=== PATIENT | male | born 1960 | race Hispanic/Latino ===

== ENCOUNTER 2017-03-18 03:22 | Emergency (ER) | payer SELFPAY ==
[~2017-03-18] VITALS: Ht 165.1 cm; Wt 59.0 kg
[~2017-03-18 03:22] MED LIST: HYDR-3454 PO; PENI500T PO
[2017-03-18] MEDS: LACTATED RINGERS 1,000 ML IV ONE (03:49)
[2017-03-18] MEDS: PANTOPRAZOLE 40 MG/10 ML (PROTONIX) VIAL IV ONE (03:54)
--- NOTE | 2017-03-18 03:56 | ED General ---
General Stated Complaint: ILLNESS Source of Information: EMS Exam Limitations: Other (PT UNABLE TO GIVE ANY INFORMATION--IS CONFUSED) History of Present Illness Time Seen by Provider: 03:18 Initial Comments PT ARRIVES VIA EMS FROM HOME NO INFORMATION IS OBTAINABLE EMS DO NOT KNOW WHO CALLED AND NO ONE AT SCENE PT AGITATED, NOT ANSWERING QUESTIONS OR FOLLOWING COMMANDS PT WAS FOUND BY EMS WITH BRIGHT RED BLOOD ON TOILET AND ON SHORTS , WELL SOCKS. PT WAS FOUND TO HAVE EMPTY BOTTLES OF ALCOHOL NEAR HIM, ALSO SEVERAL BOTTLES OF BLEACH PT NOTED TO HAVE BRUISE TO LEFT FLANK AND ON FOREARMS BUT NO OPEN WOUNDS. ACCUCHECK 66 PER EMS Allergies and Home Medications Allergies Coded Allergies: No Known Drug Allergies (Unverified , 04/17/14) Home Medications Hydrocodone/Acetaminophen 1 Each Tablet, 2 EACH PO Q6H, #20 Prescribed by: JONES LOMBARDO MD on 11/22/15 1521 Penicillin V Potassium 500 Mg Tablet, 500 MG PO QID for 10 Days Prescribed by: JONES LOMBARDO MD on 11/22/15 1521 Constitutional: other (UNABLE TO OBTAIN) Past Jygygry-Wrrjdo-Edpsmw Hx Patient Social History Alcohol Use: Regular Use (HEAVY) Recreational Drug Use: No Smoking Status: Never a Smoker Recent Foreign Travel: No Contact w/Someone Who Travel: No Surgeries HX Surgeries: No Respiratory Hx Respiratory Disorders: No Cardiovascular Hx Cardiac Disorders: No Neurological Hx Neurological Disorders: No Reproductive System Hx Reproductive Disorders: No Sexually Transmitted Disease: No Genitourinary Hx Genitourinary Disorders: No Gastrointestinal Hx Gastrointestinal Disorders: No Musculoskeletal Hx Musculoskeletal Disorders: No (RIGHT ARM FX) Musculoskeletal Disorders: Fractures Endocrine Hx Endocrine Disorders: No HEENT HX ENT Disorders: No Cancer Hx Cancer: No Psychosocial Hx Psychiatric Problems: No Integumentary HX Skin/Integumentary Disorder: No Blood Transfusions Hx Blood Disorders: No Family Medical History Other UNABLE TO OBTAIN PMH FROM PT AT THIS TIME--ALL OF THE ABOVE IS FROM OLD RECORD Family Medial History: Cancer G8 BROTHER Chest pain 19 MOTHER Family history: Cardiovascular disease 19 MOTHER Family history: Diabetes mellitus 19 MOTHER Family history: Hypertension 19 MOTHER Headache 19 MOTHER Heart disease 19 MOTHER History of - respiratory disease 19 MOTHER Stroke 19 MOTHER Physical Exam Vital Signs Vital Sign - Last 12Hours 03/18/17 03/18/17 03:22 08:04 Temp 93.0 Pulse 103 Resp 24 B/P (MAP) 100/65 Pulse Ox 100 O2 Delivery Room Air FiO2 100 Capillary Refill : General Appearance: Anxious, Thin, Other (ANXIOUS, AGITATED, RESTLESS, PULLING AT IV'S, MONITOR LEADS, CATHETER. MOANING AND HYPERVENTILATING. PT REEKS OF ALCOHOL. BRIGHT RED BLOOD IN SHORTS ALONG WITH STOOL. ALSO BRIGHT RED BLOOD ON SOCKS. ) HEENT: PERRL/EOMI, Scleral Icterus (L), Other (PT WITH EXTREMELY DRY ORAL MUCOSA WITH FISSURED TONGUE. BRIGHT RED BLOOD IN MOUTH AND ON LIPS, BUT WITH NO EVIDENCE OF VOMIT. ) Neck: Full Range of Motion, Normal Inspection, Non Tender, Supple Respiratory: Normal Breath Sounds, No Accessory Muscle Use, No Respiratory Distress Cardiovascular: Regular Rate, Rhythm, No Edema, No JVD, No Murmur, Normal Peripheral Pulses Gastrointestinal: Normal Bowel Sounds, Non Tender, Soft Rectal: No Hemorrhoids, No Mass, Other (ACTIVE BLEEDING FROM RECTUM) Extremity: Normal Range of Motion, No Pedal Edema Neurologic/Psychiatric: Alert, Other (AGITATED, RESTLESS, DOES NOT ANSWER QUESTIONS OR FOLLOW COMMANDS, PULLING AT TUBES, IV, MONITOR LINES, ETC ) Skin: Ecchymosis (MUTLIPLE AREAS), Jaundice Progress/Results/Core Measures Results/Orders Lab Results Laboratory Tests Test 03/18/17 03:33 03/18/17 03:44 03/18/17 05:28 03/18/17 05:41 Range/Units White Blood Count 6.7 4.3-11.0 10^3/uL Red Blood Count 2.29 L 4.35-5.85 10^6/uL Hemoglobin 8.2 L 13.3-17.7 G/DL Hematocrit 26 L 40-54 % Mean Corpuscular Volume 115 H 80-99 FL Mean Corpuscular Hemoglobin 36 H 25-34 PG Mean Corpuscular Hemoglobin Concent 31 L 32-36 G/DL Red Cell Distribution Width 12.6 10.0-14.5 % Platelet Count 63 L 130-400 10^3/uL Mean Platelet Volume 12.7 H 7.4-10.4 FL Neutrophils (%) (Auto) 69 42-75 % Lymphocytes (%) (Auto) 11 L 12-44 % Monocytes (%) (Auto) 20 H 0-12 % Eosinophils (%) (Auto) 0 0-10 % Basophils (%) (Auto) 0 0-10 % Neutrophils # (Auto) 4.6 1.8-7.8 X 10^3 Lymphocytes # (Auto) 0.8 L 1.0-4.0 X 10^3 Monocytes # (Auto) 1.3 H 0.0-1.0 X 10^3 Eosinophils # (Auto) 0.0 0.0-0.3 10^3/uL Basophils # (Auto) 0.0 0.0-0.1 10^3/uL Prothrombin Time 24.9 H 12.2-14.7 SEC INR Comment 2.3 H 0.8-1.4 Activated Partial Thromboplast Time 49 H 24-35 SEC Sodium Level 136 135-145 MMOL/L Potassium Level 3.4 L 3.6-5.0 MMOL/L Chloride Level 89 L 98-107 MMOL/L Carbon Dioxide Level < 5 *L 21-32 MMOL/L Anion Gap 42 H 5-14 MMOL/L Blood Urea Nitrogen 47 H 7-18 MG/DL Creatinine 2.50 H 0.60-1.30 MG/DL Estimat Glomerular Filtration Rate 27 BUN/Creatinine Ratio 19 Glucose Level 54 *L 70-105 MG/DL Calcium Level 8.1 L 8.5-10.1 MG/DL Magnesium Level 2.0 1.8-2.4 MG/DL Total Bilirubin 10.0 H 0.1-1.0 MG/DL Aspartate Amino Transf (AST/SGOT) 324 H 5-34 U/L Alanine Aminotransferase (ALT/SGPT) 87 H 0-55 U/L Alkaline Phosphatase 147 H 40-136 U/L Ammonia 298 H 11-32 UMOL/L Troponin I < 0.30 <0.30 NG/ML Total Protein 6.5 6.4-8.2 G/DL Albumin 2.9 L 3.2-4.5 G/DL Amylase Level 999 H 25-125 U/L Lipase 4783 H 8-78 U/L TSH [place] Testing 0.67 0.35-4.94 UIU/ML Acetaminophen Level < 10 L 10-30 UG/ML Serum Alcohol 115 H <10 MG/DL Urine Color YELLOW Urine Clarity SLIGHTLY CLOUDY Urine pH 5 5-9 Urine Specific [place] 1.025 H 1.016-1.022 Urine Protein 3+ H NEGATIVE Urine Glucose (UA) NEGATIVE NEGATIVE Urine Ketones 1+ H NEGATIVE Urine Nitrite NEGATIVE NEGATIVE Urine Bilirubin 3+ H NEGATIVE Urine Urobilinogen 12 H NORMAL MG/DL Urine Leukocyte Esterase 1+ H NEGATIVE Urine RBC (Auto) 5+ H NEGATIVE Urine RBC NONE /HPF Urine WBC RARE /HPF Urine Squamous Epithelial Cells 2-5 /HPF Urine Crystals PRESENT H /LPF Urine Amorphous Sediment LARGE YESICA URATES H /LPF Urine Bacteria NEGATIVE /HPF Urine Casts NONE /LPF Urine Mucus NEGATIVE /LPF Urine Culture Indicated NO Urine Opiates Screen NEGATIVE NEGATIVE Urine Oxycodone Screen NEGATIVE NEGATIVE Urine Methadone Screen NEGATIVE NEGATIVE Urine Propoxyphene Screen NEGATIVE NEGATIVE Urine Barbiturates Screen NEGATIVE NEGATIVE Ur Tricyclic Antidepressants Screen NEGATIVE NEGATIVE Urine Phencyclidine Screen NEGATIVE NEGATIVE Urine Amphetamines Screen NEGATIVE NEGATIVE Urine Methamphetamines Screen NEGATIVE NEGATIVE Urine Benzodiazepines Screen NEGATIVE NEGATIVE Urine Cocaine Screen NEGATIVE NEGATIVE Urine Cannabinoids Screen POSITIVE H NEGATIVE Blood Gas Puncture Site LEFT BRACHIAL Blood Gas Patient Temperature 86.7 Arterial Blood pH 6.90 *L 7.37-7.43 Arterial Blood Partial Pressure CO2 10 *L 35-45 MMHG Arterial Blood Partial Pressure O2 114 H 79-93 MMHG Arterial Blood HCO3 2 *L 23-27 MMOL/L Arterial Blood Total CO2 2.5 L 21.0-31.0 MMOL/L Arterial Blood Oxygen Saturation 96 94-100 % Arterial Blood Base Excess -28.9 L -2.5-2.5 MMOL/L Kilo Test NA Blood Gas Ventilator Setting NO Blood Gas Inspired Oxygen ROOM AIR Glucometer 176 H 70-110 MG/DL Test 03/18/17 07:45 03/18/17 07:55 Range/Units Glucometer 93 70-110 MG/DL Blood Gas Puncture Site R BRACH Blood Gas Patient Temperature 84.8 Arterial Blood pH 6.71 *L 7.37-7.43 Arterial Blood Partial Pressure CO2 62 H 35-45 MMHG Arterial Blood Partial Pressure O2 110 H 79-93 MMHG Arterial Blood HCO3 7 *L 23-27 MMOL/L Arterial Blood Total CO2 9.0 L 21.0-31.0 MMOL/L Arterial Blood Oxygen Saturation 91 L 94-100 % Arterial Blood Base Excess -25.0 L -2.5-2.5 MMOL/L Kilo Test YES-POS Blood Gas Ventilator Setting YES Blood Gas Inspired Oxygen 100% My Orders Orders - JUMANA BILLY DO Saline Lock/Iv-Start (03/18/17 03:33) Ekg Tracing (03/18/17 03:33) Restraints: Medically Indicate Q2H (03/18/17 03:33) Monitor-Rhythm Ecg Trace Only (03/18/17 03:33) Ct Head Wo-R/O Stroke (03/18/17 03:33) Acetaminophen (03/18/17 03:33) Alcohol (03/18/17 03:33) Ammonia (03/18/17 03:33) Amylase (03/18/17 03:33) Cbc With Automated Diff (03/18/17 03:33) Comprehensive Metabolic Panel (03/18/17 03:33) Drug Screen Stat (Urine) (03/18/17 03:33) Hepatitis Panel Acute (03/18/17 03:33) Lipase (03/18/17 03:33) Magnesium (03/18/17 03:33) Protime With Inr (03/18/17 03:33) Partial Thromboplastin Time (03/18/17 03:33) Thyroid Analyzer (03/18/17 03:33) Troponin I (03/18/17 03:33) Ua Culture If Indicated (03/18/17 03:33) Chest 1 View, Ap/Pa Only (03/18/17 03:33) Saline Lock/Iv-Start (03/18/17 03:33) Lactated Ringers (Lr 1000 Ml Iv Solution (03/18/17 03:33) Ct Abdomen/Pelvis Wo (03/18/17 03:45) Ondansetron Injection (Zofran Injectio (03/18/17 04:00) Saline Lock/Iv-Start (03/18/17 03:46) Ns Iv 1000 Ml (Sodium Chloride 0.9%) (03/18/17 03:46) Pantoprazole Injection (Protonix Injecti (03/18/17 04:00) Fecal Occult Bedside (03/18/17 03:47) O2 (03/18/17 03:47) Pantoprazole Injection (Protonix Injecti (03/18/17 03:43) Red Cells Leukocytes Reduced (03/18/17 04:28) Type And Screen (03/18/17 04:28) D50w (Emergency) Syringe (Dextrose 50% 5 (03/18/17 04:45) D50w (Emergency) Syringe (Dextrose 50% 5 (03/18/17 04:35) Fresh Frozen Plasma (03/18/17 05:17) Arterial Blood Gas (03/18/17 05:18) Arterial Blood Gas (03/18/17 05:41) Accucheck Stat ONCE (03/18/17 05:41) Sodium Bicarbonate 8.4% Syr (Sodium Bica (03/18/17 05:42) Sodium Bicarbonate 8.4% Syr (Sodium Bica (03/18/17 06:00) Ns Iv 1000 Ml (Sodium Chloride 0.9%) (03/18/17 05:58) Saline Lock/Iv-Start (03/18/17 06:09) Ns Iv 1000 Ml (Sodium Chloride 0.9%) (03/18/17 06:09) Red Cells Leukocytes Reduced (03/18/17 05:26) Dopamine Drip (Dopamine Drip) (03/18/17 06:53) Chest 1 View, Ap/Pa Only (03/18/17 07:16) Ceftriaxone Injection (Rocephin Injectio (03/18/17 07:30) Arterial Blood Gas (03/18/17 07:22) Accucheck Stat ONCE (03/18/17 07:39) Dopamine Drip (Dopamine Drip) (03/18/17 08:00) Rocuronium Injection (Zemuron Injection) (03/18/17 08:10) Atropine Inj 10 Mg Syringe (Atropine In (03/18/17 08:17) Epinephrine Emergency Syringe (Epinephr (03/18/17 08:17) Sodium Bicarbonate 8.4% Syr (Sodium Bica (03/18/17 08:17) Medications Given in ED Current Medications Medications Dose Ordered Sig/Mar Route Start Time Stop Time Status Last Admin Dose Admin Ceftriaxone Sodium 1000 mg/ Sodium Chloride 50 ml @ 100 mls/hr ONCE ONCE IV 03/18/17 07:30 03/18/17 07:59 DC 03/18/17 07:46 100 MLS/HR Dextrose 50 ml ONCE ONCE IV 03/18/17 04:45 03/18/17 04:46 DC 03/18/17 04:43 50 ML Lactated Ringer's 1,000 ml @ 0 mls/hr Q0M ONCE IV 03/18/17 03:33 03/18/17 03:36 DC 03/18/17 03:49 1,000 MLS/HR Ondansetron HCl 4 mg ONCE ONCE IVP 03/18/17 04:00 03/18/17 04:01 DC 03/18/17 05:49 4 MG Pantoprazole 80 mg ONCE ONCE IV 03/18/17 04:00 03/18/17 04:01 DC 03/18/17 03:54 80 MG Sodium Bicarbonate 200 meq ONCE ONCE IV 03/18/17 06:00 03/18/17 06:01 DC 03/18/17 05:54 200 MEQ Sodium Chloride 1,000 ml @ 0 mls/hr Q0M ONCE IV 03/18/17 03:46 03/18/17 03:47 DC 03/18/17 06:52 1,000 MLS/HR Sodium Chloride 1,000 ml @ 0 mls/hr Q0M ONCE IV 03/18/17 06:09 03/18/17 06:10 DC 03/18/17 05:49 1,000 MLS/HR Vital Signs/I&O Vital Sign - Last 12Hours 03/18/17 03/18/17 03/18/17 03:22 07:07 08:04 Temp 93.0 81.0 Pulse 103 123 122 Resp 24 12 25 B/P (MAP) 100/65 144/98 Pulse Ox 100 92 93 O2 Delivery Room Air Ambu-Bag FiO2 100 Progress Note : Progress Note 0530--PT WITH IMPROVED MENTATION AFTER D50 GIVEN, PT ABLE TO VERBALIZE SOME, STILL CONFUSED, BUT ABLE TO ASK AND ANSWER A FEW VERY SIMPLE QUESTIONS. LESS AGITATED. HE STATES THERE IS NO ONE IN THIS AREA TO CALL--NO FAMILY HERE IN THIS AREA. NO FRIENDS TO CALL. VITALS REMAINED STABLE THROUGHOUT ER STAY, THEN EMS WAS PREPARING FOR TRANSPORT, PT BEGAN TO HAVE HYPOTENSION AND DECREASED IN MENTATION, VERY RAPIDLY DETERIORATED AND WENT INTO FULL CARDIOPULMONARY ARREST. PT WAS CODED WITH SUCCESS--SEE CODE BLUE NOTES. POSTCODE EXAM--NOW WITH RHONCHI IN RIGHT LUNG. ECG Initial ECG Impression Time: 05:50 Initial ECG Rate: 78 Initial ECG Rhythm: Normal Sinus Initial ECG Comparisson: No Previous ECG Available Diagnostic Imaging Comments CT HEAD--NO ACUTE PROCESS, PER [facility] VIA FAX @ 0876 CT ABDOMEN/PELVIS--NO FREE FLUID OR FREE AIR. MILD PERIPANCREATIC EDEMA- POSSIBLE PANCREATITIS. OTHER NON-ACUTE FINDINGS--PER [facility] VIA FAX @ 2724 CXR--NO ACUTE PROCESS, PENDING RADIOLOGIST REVIEW POST-INTUBATION CXR--ET TUBE IN PLACE. NOW WITH DIFFUSE INFILTRATES--RIGHT > LEFT--PENDING RADIOLOGIST REVIEW Reviewed: Reviewed by Me Critical Care Note Critical Care Total Time (minutes) OVER 2 HOURS Progress SEE CODE BLUE NOTES Departure Communication Progress Notes 0458--SPOKE WITH DR. MICHELLE, SURGEON [facility] [employer]PERATIONS STAFF OFFICER. WILL CALL HIM BACK WITH CT RESULTS. 05--SPOKE WITH DR. MICHELLE AND REVIEWED CT RESULTS. HE ADVISES TO CONSULT DR. CEJA. 05--SPOKE WITH DR. CEJA, HOSPITALIST. SHE ADVISES TRANSFER 0515--CALLED [facility]. PAGING CORN BREEDER 05--SPOKE WITH DR. BLANCO. CORN BREEDER. HE ACCEPTS PT FOR DIRECT ADMIT. DOES NOT ADVISE ANY ADDITIONAL TREATMENT AT THIS TIME. 0520--EMS [facility]PATCH CONTACTED FOR TRANSPORT. 0700--PT WENT INTO FULL CARDIOPULMONARY ARREST. CPR INITIATED WITH SUCCESSFUL RESUSCITATION. SEE CODE BLUE NOTES FOR DETAILS. PT INTUBATED BY ANESTHESIA. 0708--CALLED [facility] TO GIVE UPDATE, MESSAGE LEFT ON MACHINE 0716--[facility] RETURNED CALL. THEY WILL CALL ME BACK 0720--[facility] CALLED AGAIN. THEY WILL CALL ME BACK 0722--SPOKE WITH DR. JIMENEZ, NOW THE [facility] [employer]ATIONS STAFF OFFICER CORN BREEDER. REPORT GIVEN TO HIM AND INFORMED OF CHANGE IN STATUS EMS WILL NOT TRANSPORT PT NOW, AND LEFT THE PREMISES. 0720--[facility] WAS CONTACTED BY RN. THEY WILL BE DELAYED BY AT LEAST 30 MINUTES DUE TO WEATHER/FOG. THEY WILL CALL BACK WHEN AVAILABLE FOR TRANSPORT 0750--[facility] CALLED. STILL DELAYED FOR UNKNOWN LENGTH OF TIME DUE TO WEATHER/ FOG--INDEFINITELY DELAYED. 0804--[facility] CONTACTED FOR TRANSPORT. THEY WILL CALL BACK. 0808--[facility] CALLED AND THEY CAN NOW TRANSPORT PT AND ARE LIFTING OFF NOW. [facility] CALLED BACK AND INFORMED OF [facility] AVAILABILITY. 0825--[facility] HERE FOR TRANSPORT. Impression Impression: Primary Impression: S/P CODE BLUE WITH FULL CARDIOPULMONARY ARREST Additional Impressions: Altered mental status Hepatic encephalopathy Multiorgan failure ACUTE UPPER AND LOWER GI BLEED Pancreatitis Anemia Alcoholism Metabolic acidosis Thrombocytopenia Coagulopathy SHOCK--MIXED CIRCULATORY AND METABOLIC AND HYPOVOLEMIC POSSIBLE ASPIRATION PNEUMONIA Disposition: 02 XFER SHT-TRM HOSP Condition: Critical Departure-Patient Inst. Referrals: NO,LOCAL PHYSICIAN (PCP/Family) Primary Care Physician JUMANA BILLY DO Mar 18, 2017 03:56
[2017-03-18 04:10] LABS: BASOPHILS % (AUTO) 0 % (0-10); EOSINOPHILS % (AUTO) 0 % (0-10); LYMPHOCYTES # (AUTO) 0.8 X 10^3 (1.0-4.0); LYMPHOCYTES % (AUTO) 11 % (12-44); MEAN CORPUSCULAR HEMOGLOBIN 36 PG (25-34); MEAN CORPUSCULAR HGB CONC 31 G/DL (32-36); MEAN CORPUSCULAR VOLUME 115 FL (80-99); MEAN PLATELET VOLUME 12.7 FL (7.4-10.4); MONOCYTES # (AUTO) 1.3 X 10^3 (0.0-1.0); MONOCYTES % (AUTO) 20 % (0-12); NEUTROPHILS # (AUTO) 4.6 X 10^3 (1.8-7.8); NEUTROPHILS % (AUTO) 69 % (42-75); PLATELET COUNT 63 10^3/uL (130-400); RED BLOOD COUNT 2.29 10^6/uL (4.35-5.85); RED CELL DISTRIBUTION WIDTH 12.6 % (10.0-14.5); WHITE BLOOD COUNT 6.7 10^3/uL (4.3-11.0)
[2017-03-18 04:12] LABS: KETONES,URINE 1+ (NEGATIVE); LEUKOCYTE ESTERASE ,URINE 1+ (NEGATIVE); NITRITE,URINE NEGATIVE (NEGATIVE); PH,URINE 5 (5-9); PROTEIN,URINE 3+ (NEGATIVE); UROBILINOGEN,URINE 12 MG/DL (NORMAL)
[2017-03-18 04:19] LABS: INR 2.3 (0.8-1.4); PROTHROMBIN TIME PATIENT 24.9 SEC (12.2-14.7)
[2017-03-18 04:24] LABS: BILIRUBIN,URINE 3+ (NEGATIVE); WBC,URINE RARE /HPF
[2017-03-18 04:30] LABS: ALANINE AMINOTRANSFERASE 87 U/L (0-55); ALBUMIN 2.9 G/DL (3.2-4.5); ALCOHOL 115 MG/DL (<10); AMMONIA 298 UMOL/L (11-32); AMYLASE 999 U/L (25-125); ASPARTATE AMINO TRANSFERASE 324 U/L (5-34); BLOOD UREA NITROGEN 47 MG/DL (7-18); BUN/CREATININE RATIO 19; CALCIUM 8.1 MG/DL (8.5-10.1); CHLORIDE 89 MMOL/L (98-107); GFR ESTIMATED 27; POTASSIUM 3.4 MMOL/L (3.6-5.0); SODIUM 136 MMOL/L (135-145); TOTAL PROTEIN 6.5 G/DL (6.4-8.2)
[2017-03-18 04:37] LABS: ACETAMINOPHEN < 10 UG/ML (10-30); ANION GAP 42 MMOL/L (5-14); CARBON DIOXIDE < 5 MMOL/L (21-32); GLUCOSE 54 MG/DL (70-105)
[2017-03-18] MEDS: DEXTROSE 50% 50 ML (IMS) SYR IV ONE (04:43)
[2017-03-18 04:53] LABS: TROPONIN I < 0.30 NG/ML (<0.30)
[2017-03-18] MEDS: PANTOPRAZOLE 40 MG/10 ML (PROTONIX) VIAL ONE (05:20)
[2017-03-18] MEDS: DEXTROSE 50% 50 ML (IMS) SYR ONE (05:21)
[2017-03-18 05:28] LABS: LIPASE 4783 U/L (8-78)
[2017-03-18 05:38] LABS: ABG BASE EXCESS -28.9 MMOL/L (-2.5-2.5); ABG OXYGEN SATURATION 96 % (94-100); ABG PO2 114 MMHG (79-93); ABG TCO2 2.5 MMOL/L (21.0-31.0)
[2017-03-18 05:40] LABS: ABG HCO3 2 MMOL/L (23-27); ABG PCO2 10 MMHG (35-45); PATIENT TEMP 86.7
[2017-03-18] MEDS ORDERED: SODIUM BICARB 8.4% 50 MEQ/50 ML (ABBOTT) SYR ONE (05:42)
[2017-03-18] MEDS: ONDANSETRON 4 MG/2 ML (SDV) Z0FRAN IVP ONE (05:49)
[2017-03-18] MEDS: NS IV 1000 ML 1,000 ML IV ONE ×2 (05:49→06:52)
[2017-03-18] MEDS: SODIUM BICARB 8.4% 50 MEQ/50 ML (ABBOTT) SYR IV ONE (05:54)
[2017-03-18] MEDS ORDERED: NS IV 1000 ML 1,000 ML ONE (05:58)
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
[2017-03-18] MEDS: DOPamine DRIP 250 ML IV SCH (07:07)
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
--- NOTE | 2017-03-18 07:30 | Progress Note-Standard ---
Standard Progress Note Final Diagnosis Consulted for emergent intubation per Dr. Miner. 7.5 ETT placed x1 attempt prasanna well. Humberto breath sounds, throat not clear, emesis and blood in airway. Report to Dr. Miner care assumed. MITESH SURESH CRNA Mar 18, 2017 07:30
[2017-03-18] MEDS: cefTRIAXone INJECTION 1,000 MG in NS (IVPB) 50 ML IV ONE (07:46)
--- NOTE | 2017-03-18 07:51 | Diagnostic Imaging Report ---
INDICATION: Intubation. Exam compared with study one day prior. FINDINGS: An ET tube tip projects over the midthoracic trachea. Reflecting significant change from the recent exam is 5 lobed airspace opacity given its acute development suspicious for pulmonary edema. No effusion and no pneumothorax. IMPRESSION: ET tube in good alignment, however, substantial bilateral perihilar infiltrates have acutely developed suspect for acute onset pulmonary edema. Dictated by: Dictated on workstation # [id number]
[2017-03-18 08:04] VITALS: BP 105/70
[2017-03-18 08:07] LABS: ABG OXYGEN SATURATION 91 % (94-100); ABG PCO2 62 MMHG (35-45); ABG PO2 110 MMHG (79-93)
[2017-03-18] MEDS ORDERED: ROCURONIUM 50 MG/5 ML (ZEMURON) VIAL IV ONE (08:10)
[2017-03-18 08:11] LABS: ABG HCO3 7 MMOL/L (23-27); ABG PH 6.71 (7.37-7.43); ALLENS TEST YES-POS
[2017-03-18 08:12] LABS: PATIENT TEMP 84.8
[2017-03-18] MEDS: DOPamine DRIP 250 ML IV ONE (08:17)
[2017-03-18] MEDS ORDERED: EPINEPHrine 0.1 MG/ML 10 ML (HOSPIRA) SYR IV ONE (08:17)
[2017-03-18] MEDS ORDERED: SODIUM BICARB 8.4% 50 MEQ/50 ML (ABBOTT) SYR INJ ONE (08:17)
[2017-03-18] MEDS ORDERED: ATROPINE INJECTION 1 MG/10 ML SYR (ABBOTT) INJ ONE (08:17)
[2017-03-18 08:38] VITALS: BP 99/67
== END 2017-03-18 08:30 | disposition short-term general hospital (02) ==
LOC: EDUNIT# 03:28 → ER 03:29
DX: I46.8 Cardiac arrest due to other underlying condition (principal); K70.40 Alcoholic hepatic failure without coma; K92.2 Gastrointestinal hemorrhage, unspecified; K62.5 Hemorrhage of anus and rectum; K85.20 Alcohol induced acute pancreatitis without necrosis or infection; F10.229 Alcohol dependence with intoxication, unspecified; D64.9 Anemia, unspecified; E87.2 Acidosis; D69.6 Thrombocytopenia, unspecified; D68.9 Coagulation defect, unspecified; K76.0 Fatty (change of) liver, not elsewhere classified; K40.90 Unilateral inguinal hernia, without obstruction or gangrene, not specified as recurrent; N20.0 Calculus of kidney; Y90.5 Blood alcohol level of 100-119 mg/100 ml
CPT/HCPCS: 31500; 36415; 51702; 70450; 71010; 74176; 80053; 80074; 80306; 80320; 80329; 81000; 82140; 82150; 82805; 82962; 83690; 83735; 84443; 84484; 85025; 85610; 85730; 86850; 86900; 86901; 86920; 93041; 99291; 99292